=== PATIENT | male | born 1985 | race Two or more races ===

== ENCOUNTER 2016-09-12 01:07 | Emergency (ER) | payer MEDICAID ==
[~2016-09-12] VITALS: Ht 165.1 cm; Wt 66.7 kg
[2016-09-12] MEDS ORDERED: NKM (01:26)
--- NOTE | 2016-09-12 01:37 | Emergency Room Report ---
History of Present Illness General Chief Complaint: Chest Pain Source: Patient Present Illness HPI Patient presents with complaints of midsternal chest pain off-and-on for the past 2 days He also feels the pain in the left upper shoulder Denies any vomiting denies any abdominal pain Patient reports that 2 months ago he was told at the clinic he had borderline glucose which was 109 Today he checked it which was 85 Denies any dysuria frequency Denies any flank pain denies any shortness of breath or pleurisy Allergies: Coded Allergies: No Known Allergies (Unverified , 09/12/16) Patient History Past Medical History: see triage record Pertinent Family History: none Reviewed Nursing Documentation: PMH: Agreed, PSxH: Agreed Nursing Documentation-PMH Past Medical History: No Stated History Review of Systems All Other Systems: negative except mentioned in HPI Physical Exam Vital Signs Date Time Temp Pulse Resp B/P Pulse Ox O2 Delivery O2 Flow Rate FiO2 09/12/16 01:20 97.9 70 16 118/77 99 Room Air Sp02 EP Interpretation: reviewed, normal General Appearance: well appearing, no apparent distress Head: normocephalic, atraumatic Eyes: bilateral eye EOMI, bilateral eye PERRL ENT: hearing grossly normal, normal pharynx, TMs + canals normal, uvula midline Neck: full range of motion, supple, no meningismus, no bony tend Respiratory: lungs clear, normal breath sounds, no rhonchi, no respiratory distress, no retraction, no accessory muscle use Cardiovascular #1: normal peripheral pulses, regular rate, rhythm, no edema, no gallop, no JVD, no murmur Gastrointestinal: normal bowel sounds, non tender, soft, no mass, no organomegaly, non-distended, no guarding, no hernia, no pulsatile mass, no rebound Genitourinary: no CVA tenderness Musculoskeletal: normal inspection Neurologic: oriented x3, responsive, 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, motor strength/ tone normal, sensory intact Psychiatric: mood/affect normal Skin: normal color, no rash, warm/dry, palpation normal Lymphatic: normal inspection, no adenopathy Medical Decision Making Diagnostic Impression: Primary Impression: Chest pain ER Course Patient is a fairly complex patient with multiple differential to consideration including but not limited to cardiac cardiopulmonary and vascular emergencies Patient's EKG is normal patient remained hemodynamically stable My suspicion for cardiac presentation is low Patient does not have any pulmonary complaints as far as shortness of breath or pleurisy At this time is stable for close outpatient followup EKG Diagnostic Results Rate: normal Rhythm: NSR ST Segments: no acute changes Rhythm Strip Diag. Results EP Interpretation: yes Rate: 66 Rhythm: NSR, no PVC's, no ectopy Last Vital Signs Date Time Temp Pulse Resp B/P Pulse Ox O2 Delivery O2 Flow Rate FiO2 09/12/16 01:20 97.9 70 16 118/77 99 Room Air Status: improved Disposition: HOME, SELF-CARE Condition: Improved Scripts Famotidine (PEPCID) 40 Mg Tablet 40 MG PO DAILY, #14 TAB 0 Refills Prov: ALBAN MARS D.O. 09/12/16 Referrals: NOT CHOSEN IPA/MD,REFERRING (PCP) Additional Instructions: Patient is provided with the discharge instructions notified to follow up with primary doctor in the next 2-3 days otherwise return to the er with any worsening symptoms. Please note that this report is being documented using [employer] technology. This can lead to erroneous entry secondary to incorrect interpretation by the dictating instrument. ALBAN MARS D.O. September 12, 2016 01:37
[2016-09-12] MEDS ORDERED: PEPCID40 MG PO (01:38)
[2016-09-12 01:40] VITALS: BP 125/78
[2016-09-12 01:43] VITALS: BP 125/78
--- NOTE | 2016-09-13 19:49 | Cardiology Report ---
APPROVED REPORT EKG Measurement Heart [id number] [place] [id number] Normal sinus rhythm with sinus arrhythmia Normal ECG
== END 2016-09-12 01:45 | disposition home or self-care (01) ==
LOC: EMR 01:18
DX: R07.89 Other chest pain (principal); M25.512 Pain in left shoulder
CPT/HCPCS: 93005; 99283

== ENCOUNTER 2017-01-10 04:33 | Emergency (ER) | payer MEDICAID ==
[~2017-01-10] VITALS: Ht 165.1 cm; Wt 68.0 kg
[~2017-01-10 04:33] MED LIST: NKM; PEPCID40 MG PO
--- NOTE | 2017-01-10 04:49 | Emergency Room Report ---
History of Present Illness General Chief Complaint: Foreign Body Source: Patient Present Illness HPI Is a 32-year-old male with no past history. He presents with a foreign body in his right ear. He was sleeping when the bug brought to his ear. This occurred about an hour ago. Very painful. No other complaint. Never happened before. Allergies: Coded Allergies: No Known Allergies (Unverified , 09/12/16) Patient History Past Medical History: see triage record, old chart reviewed Past Surgical History: none Pertinent Family History: none Social History: Denies: smoking Immunizations: other Reviewed Nursing Documentation: PMH: Agreed, PSxH: Agreed Nursing Documentation-PMH Past Medical History: No Stated History Review of Systems Eye: Denies: eye pain, blurred vision ENT: Denies: ear pain, nose congestion, throat swelling Respiratory: Denies: cough, shortness of breath Cardiovascular: Denies: chest pain, palpitations Gastrointestinal: Denies: abdominal pain, diarrhea, nausea, vomiting Musculoskeletal: Denies: back pain, joint pain Skin: Denies: rash Neurological: Denies: headache, numbness Endocrine: Denies: increased thirst, increased urine Hematologic/Lymphatic: Denies: easy bruising All Other Systems: negative except mentioned in HPI Physical Exam Vital Signs Date Time Temp Pulse Resp B/P (MAP) Pulse Ox O2 Delivery O2 Flow Rate FiO2 01/10/17 04:34 98.1 76 18 123/81 98 Room Air vitals normal Sp02 EP Interpretation: reviewed, normal General Appearance: well appearing, no apparent distress, alert Head: normocephalic, atraumatic Eyes: bilateral eye PERRL, bilateral eye EOMI ENT: hearing grossly normal, normal pharynx, other - Ear canal: There is an insect it looked like her cockroach in his right ear canal. Is still moving. Neck: full range of motion, supple, no meningismus Respiratory: chest non-tender, lungs clear, normal breath sounds Cardiovascular #1: regular rate, rhythm, no murmur Gastrointestinal: normal bowel sounds, non tender, no mass, no organomegaly, no bruit, non-distended Musculoskeletal: back normal, gait/station normal, normal range of motion Psychiatric: mood/affect normal Skin: warm/dry Procedures Additional Procedure Procedure Narrative Procedure: Foreign body removal Indication: Foreign body in right ear canal Description: I irrigated the right ear canal with water using an 18-gauge angiocatheter. This killed the bug. Using an alligator forcep was removed in whole. Patient tolerated procedure without a problem. On recheck is no perforation of the eardrum. There is some erythema along the canal medially. Medical Decision Making Diagnostic Impression: Primary Impression: Foreign body in right auditory canal Qualified Codes: S00.451A - Superficial foreign body of right ear, initial encounter ER Course Patient with a foreign body in the right ear. No perforation. We'll discharge him. Last Vital Signs Date Time Temp Pulse Resp B/P (MAP) Pulse Ox O2 Delivery O2 Flow Rate FiO2 01/10/17 04:34 98.1 76 18 123/81 98 Room Air Status: improved Disposition: HOME, SELF-CARE Condition: Stable Patient Instructions: Ear Foreign Body Additional Instructions: Followup with your Dr. in 7 days return if symptom worsen. CIRILO EID M.D. Jan 10, 2017 04:49
[2017-01-10 05:10] VITALS: BP 131/82
== END 2017-01-10 05:10 | disposition home or self-care (01) ==
LOC: EMR 04:40
DX: S00.451A Superficial foreign body of right ear, initial encounter (principal); X58.XXXA Exposure to other specified factors, initial encounter; Y93.9 Activity, unspecified; Y92.9 Unspecified place or not applicable
CPT/HCPCS: 69210; 99282

== ENCOUNTER 2017-12-31 20:58 | Emergency (ER) | payer MEDICAID ==
[~2017-12-31] VITALS: Ht 154.9 cm; Wt 66.2 kg
--- NOTE | 2017-12-31 21:42 | Emergency Room Report ---
History of Present Illness General Chief Complaint: General Complaint Source: Patient Present Illness [facility] Mr. Adler is a healthy 33-year-old male presents with left sided chest palpitations and tingling in arms and legs since this morning. Denies any shortness of breath. Denies any fever. Denies discrete pain Allergies: Coded Allergies: No Known Allergies (Unverified , 09/12/16) Nursing Documentation-[facility] Past Medical History: No Stated History Review of Systems Constitutional: Denies: fever, malaise Cardiovascular: Reports: chest pain Gastrointestinal: Denies: abdominal pain All Other Systems: negative except mentioned in HPI Physical Exam Vital Signs Date Time Temp Pulse Resp B/P (MAP) Pulse Ox O2 Delivery O2 Flow Rate FiO2 12/31/17 21:30 97.2 55 16 120/79 98 Room Air 97.2 Sp02 EP Interpretation: reviewed, normal General Appearance: no apparent distress, alert, GCS 15, non-toxic Head: normocephalic, atraumatic Eyes: bilateral eye normal inspection ENT: hearing grossly normal, normal pharynx, no angioedema, normal voice Neck: full range of motion, supple/symm/no masses Respiratory: chest non-tender, lungs clear, normal breath sounds, no rhonchi, no respiratory distress, no retraction, no accessory muscle use, speaking full sentences Cardiovascular #1: regular rate, rhythm, no edema, no gallop, no JVD, no murmur , no rub Cardiovascular #2: 2+ carotid (R), 2+ carotid (L), 2+ radial (R), 2+ radial (L) , 2+ dorsalis pedis (R), 2+ dorsalis pedis (L) Gastrointestinal: normal bowel sounds, non tender, soft, non-distended, no guarding, no rebound Rectal: deferred Musculoskeletal: back normal, gait/station normal, normal range of motion, non- tender Neurologic: alert, oriented x3, responsive, motor strength/tone normal, sensory intact, speech normal Psychiatric: judgement/insight normal, memory normal, mood/affect normal, no suicidal/homicidal ideation Skin: normal color, no rash, warm/dry, well hydrated Medical Decision Making ER Course Mr. Adler presents with chest pain and paresthesias. I do not suspect PE, ACS , PTX. DDX: GERD, PVCs rx: famotidine Labs Test 12/31/17 22:10 White Blood Count 7.2 K/UL (4.8-10.8) Red Blood Count 5.09 M/UL (4.70-6.10) Hemoglobin 15.0 G/DL (14.2-18.0) Hematocrit 44.0 % (42.0-52.0) Mean Corpuscular Volume 87 FL (80-99) Mean Corpuscular Hemoglobin 29.4 PG (27.0-31.0) Mean Corpuscular Hemoglobin Concent 34.0 G/DL (32.0-36.0) Red Cell Distribution Width 12.1 % (11.6-14.8) Platelet Count 245 K/UL (150-450) Mean Platelet Volume 7.0 FL (6.5-10.1) Neutrophils (%) (Auto) 48.1 % (45.0-75.0) Lymphocytes (%) (Auto) 39.0 % (20.0-45.0) Monocytes (%) (Auto) 9.5 % (1.0-10.0) Eosinophils (%) (Auto) 2.1 % (0.0-3.0) Basophils (%) (Auto) 1.3 % (0.0-2.0) Sodium Level 139 MMOL/L (136-145) Potassium Level 3.7 MMOL/L (3.5-5.1) Chloride Level 105 MMOL/L (98-107) Carbon Dioxide Level 28 MMOL/L (21-32) Anion Gap 6 mmol/L (5-15) Blood Urea Nitrogen 13 mg/dL (7-18) Creatinine 0.7 MG/DL (0.55-1.30) Estimat Glomerular Filtration Rate > 60 mL/min (>60) Glucose Level 106 MG/DL (74-106) Calcium Level 9.3 MG/DL (8.5-10.1) Lab Results Impression cbc bmp WNL EKG Diagnostic Results Rate: normal Rhythm: NSR ST Segments: no acute changes Other Impression normal sinus rhythm normal rate normal axis normal intervals no ST elevation no ST-T signs of ischemia rate 60 beats a minute Last Vital Signs Date Time Temp Pulse Resp B/P (MAP) Pulse Ox O2 Delivery O2 Flow Rate FiO2 12/31/17 21:30 97.2 55 16 120/79 98 Room Air 97.2 Referrals: NOT CHOSEN IPA/MD,REFERRING (PCP) Lyudmila Lamar MD Dec 31, 2017 21:42
[2017-12-31] MEDS ORDERED: GI Cocktail 50ml ORAL ONE (21:45)
[2017-12-31] MEDS ORDERED: Acetaminophen 500mg (ES) tab ORAL ONE (21:45)
[2017-12-31] MEDS ORDERED: Dicyclomine HCl 10mg/5ml oral soln ONE (22:15)
[2017-12-31] MEDS ORDERED: Lidocaine 2% Visc 15ml soln ONE (22:15)
[2017-12-31 22:25] LABS: BASOPHILS % (AUTO) 1.3 % (0.0-2.0); EOSINOPHILS % (AUTO) 2.1 % (0.0-3.0); MEAN CORPUSCULAR VOLUME 87 FL (80-99); MONOCYTES % (AUTO) 9.5 % (1.0-10.0); NEUTROPHILS % (AUTO) 48.1 % (45.0-75.0); PLATELET COUNT 245 K/UL (150-450); RED BLOOD COUNT 5.09 M/UL (4.70-6.10); RED CELL DISTRIBUTION WIDTH 12.1 % (11.6-14.8); WHITE BLOOD COUNT 7.2 K/UL (4.8-10.8)
[2017-12-31 22:31] LABS: ANION GAP 6 mmol/L (5-15); BLOOD UREA NITROGEN 13 mg/dL (7-18); CALCIUM 9.3 MG/DL (8.5-10.1); CARBON DIOXIDE 28 MMOL/L (21-32); CHLORIDE 105 MMOL/L (98-107); CREATININE 0.7 MG/DL (0.55-1.30); POTASSIUM 3.7 MMOL/L (3.5-5.1); SODIUM 139 MMOL/L (136-145)
[2017-12-31 22:40] VITALS: BP 120/79
[2017-12-31] MEDS ORDERED: FAMOTIDINE20 MG ORAL (22:46)
[2017-12-31 23:00] VITALS: BP 120/79
--- NOTE | 2018-01-02 21:26 | Cardiology Report ---
APPROVED REPORT EKG Measurement Heart [id number] [place] 158P56 [id number] Sinus bradycardia Otherwise normal ECG
== END 2017-12-31 23:00 | disposition home or self-care (01) ==
LOC: EDBD → EMR 21:34
DX: R07.9 Chest pain, unspecified (principal); R00.2 Palpitations; R20.2 Paresthesia of skin
CPT/HCPCS: 36415; 80048; 85025; 93005; 99284

== ENCOUNTER 2018-01-06 21:42 | Emergency (ER) | payer MEDICAID ==
[~2018-01-06] VITALS: Ht 154.9 cm; Wt 66.2 kg
[~2018-01-06 21:42] MED LIST changes: +FAMOTIDINE20 MG ORAL
[2018-01-06 22:10] VITALS: BP 113/65
--- NOTE | 2018-01-06 22:24 | Emergency Room Report ---
History of Present Illness General Chief Complaint: Chest Pain Source: Patient Present Illness HPI This is a 33-year-old male with no past medical history. He presents with chief point of chest pain. He said he felt some water sensation in his chest. This occurred his morning. He said he got better when he exercises. No radiation but no nausea no vomiting. He's been here several time for the same thing. No diaphoresis. Allergies: Coded Allergies: No Known Allergies (Unverified , 09/12/16) Patient History Past Medical History: see triage record, old chart reviewed Past Surgical History: none Pertinent Family History: none Social History: Denies: smoking Immunizations: other Reviewed Nursing Documentation: PMH: Agreed; PSxH: Agreed Nursing Documentation-PMH Past Medical History: No Stated History Review of Systems Eye: Denies: eye pain, blurred vision ENT: Denies: ear pain, nose congestion, throat swelling Respiratory: Denies: cough, shortness of breath Cardiovascular: Reports: chest pain; Denies: palpitations Gastrointestinal: Denies: abdominal pain, diarrhea, nausea, vomiting Musculoskeletal: Denies: back pain, joint pain Skin: Denies: rash Neurological: Denies: headache, numbness Endocrine: Denies: increased thirst, increased urine Hematologic/Lymphatic: Denies: easy bruising All Other Systems: negative except mentioned in HPI Physical Exam Vital Signs Date Time Temp Pulse Resp B/P (MAP) Pulse Ox O2 Delivery O2 Flow Rate FiO2 01/06/18 21:47 98.2 62 17 122/71 98 Room Air 98.2 vitals normal Sp02 EP Interpretation: reviewed, normal General Appearance: well appearing, no apparent distress, alert Head: normocephalic, atraumatic Eyes: bilateral eye PERRL, bilateral eye EOMI ENT: hearing grossly normal, normal pharynx Neck: full range of motion, supple, no meningismus Respiratory: chest non-tender, lungs clear, normal breath sounds Cardiovascular #1: regular rate, rhythm, no murmur Gastrointestinal: normal bowel sounds, non tender, no mass, no organomegaly, no bruit, non-distended Musculoskeletal: back normal, gait/station normal, normal range of motion Psychiatric: mood/affect normal Skin: warm/dry Medical Decision Making Diagnostic Impression: Primary Impression: Chest pain Qualified Codes: R07.9 - Chest pain, unspecified ER Course Patient with atypical chest pain that get better with exercise. No evidence of any ACS, PE, dissection to name a few. We'll discharge home. Last Vital Signs Date Time Temp Pulse Resp B/P (MAP) Pulse Ox O2 Delivery O2 Flow Rate FiO2 01/06/18 22:10 98.2 56 17 113/65 98 Room Air 98.2 Status: improved Disposition: HOME, SELF-CARE Condition: Stable Patient Instructions: Nonspecific Chest Pain Additional Instructions: Follow-up with your doctor in 7 days. Return if worse. CIRILO EID M.D. Jan 06, 2018 22:24
[2018-01-06 22:29] VITALS: BP 113/63
[2018-01-06 22:30] VITALS: BP 113/63
--- NOTE | 2018-01-07 15:40 | Cardiology Report ---
APPROVED REPORT EKG Measurement Heart [id number] [place] 158P55 [id number] Sinus bradycardia Otherwise normal ECG
== END 2018-01-06 22:30 | disposition home or self-care (01) ==
LOC: EMR 22:11
DX: R07.9 Chest pain, unspecified (principal)
CPT/HCPCS: 93005; 99283

== ENCOUNTER 2018-03-01 17:12 | Emergency (ER) | payer MEDICAID ==
[~2018-03-01] VITALS: Ht 154.9 cm; Wt 65.8 kg
[2018-03-01 17:34] VITALS: BP 122/75
[2018-03-01] MEDS ORDERED: Tetanus/Diptheria/Pertussis Vaccine 0.5ml Syr IM ONE (17:45)
[2018-03-01] MEDS ORDERED: Cephalexin 500mg cap ORAL ONE (17:45)
--- NOTE | 2018-03-01 17:53 | Emergency Room Report ---
History of Present Illness General Chief Complaint: Skin Rash/Abscess Source: Patient Present Illness HPI 33-year-old male presents to the emergency department complaining of progression of his itchy rash that originally started on his right hand. Patient states that he now has itchy lesions up the right forearm, with associated 3/10 in severity pain, swelling and crusting to the initial lesions on the fingers. Patient is not sure when his last tetanus vaccination was. Pt. denies fevers, chills or swollen tender lymph nodes. He reports a small group of similar lesions to the back of his right ear. Denies lesions on the face or ear pain. Denies new medications or body washes or creams. Denies swelling of the lips, tongue , throat or airway. Denies wheezing, or shortness of breath. Denies recent travel, recent illness or ill contacts. denies blisters, oral lesions, or sloughing of the skin Allergies: Coded Allergies: No Known Allergies (Unverified , 09/12/16) Patient History Past Medical History: see triage record Past Surgical History: none Pertinent Family History: none Reviewed Nursing Documentation: PMH: Agreed; PSxH: Agreed Nursing Documentation-PMH Past Medical History: No Stated History Physical Exam Vital Signs Date Time Temp Pulse Resp B/P (MAP) Pulse Ox O2 Delivery O2 Flow Rate FiO2 03/01/18 17:20 98.1 54 17 129/61 98 Room Air Sp02 EP Interpretation: reviewed, normal General Appearance: no apparent distress, alert, GCS 15, non-toxic, moderate distress Head: normocephalic, atraumatic Eyes: bilateral eye normal inspection, bilateral eye PERRL ENT: hearing grossly normal, no angioedema, normal voice, other - no rash lesions on the face /nose/ scalp Neck: full range of motion Respiratory: chest non-tender, lungs clear, normal breath sounds, speaking full sentences Cardiovascular #1: regular rate, rhythm Musculoskeletal: back normal, gait/station normal, normal range of motion Neurologic: alert, oriented x3, responsive, motor strength/tone normal, sensory intact, speech normal, grossly normal Psychiatric: judgement/insight normal Skin: normal color, warm/dry, well hydrated, rash - multiple papules with excoriations noted to the dorsum of the right hand, the volar wrist and in a linear migration up the right forearm, small group of similar lesions behind the right ear. There is evidence of secondary infection to initial lesions on the dorsum of the right fingers and interdigitally. No blisters or vesicles noted. Lymphatic: no adenopathy Medical Decision Making PA Attestation Dr. Lamar is my supervising Physician whom patient management has been discussed with. Diagnostic Impression: Primary Impression: Rash and other nonspecific skin eruption ER Course 33-year-old male presents to the emergency department complaining of progression of his itchy rash that originally started on his right hand. Patient states that he now has itchy lesions up the right forearm, with associated 3/10 in severity pain, swelling and crusting to the initial lesions on the fingers. Patient is not sure when his last tetanus vaccination was. Pt. denies fevers, chills or swollen tender lymph nodes. He reports a small group of similar lesions to the back of his right ear. Denies lesions on the face or ear pain. Denies new medications or body washes or creams. Denies swelling of the lips, tongue , throat or airway. Denies wheezing, or shortness of breath. Denies recent travel, recent illness or ill contacts. denies blisters, oral lesions, or sloughing of the skin. Ddx considered but are not limited to cellulitis, scabies, insect bites, tic bites, spider bites, contact dermatitis, Drug reaction, allergic reaction, fungal infection, lice. Vital signs: are WNL, pt. is afebrile H&PE are most consistent with - suspected scabies due to location of initial symptoms and symptom progression/migration. multiple papules with excoriations noted to the dorsum of the right hand, the volar wrist and in a linear migration up the right forearm, small group of similar lesions behind the right ear. There is evidence of secondary infection to initial lesions on the dorsum of the right fingers and interdigitally. No blisters or vesicles noted. ORDERS: none required at this time, the diagnosis is clinical ED INTERVENTIONS: -Tdap IM -Prednisone PO 60mg. -Keflex 500mg PO DISCHARGE: At this time pt. is stable for d/c to home. Will provide printed patient care instructions, and any necessary prescriptions. Care plan and follow up instructions have been discussed with the patient prior to discharge. Last Vital Signs Date Time Temp Pulse Resp B/P (MAP) Pulse Ox O2 Delivery O2 Flow Rate FiO2 03/01/18 17:34 98.7 86 16 122/75 100 Room Air Disposition: HOME, SELF-CARE Condition: Stable Scripts Prednisone* (PREDNISONE*) 20 Mg Tablet 40 MG ORAL DAILY for 3 Days, #6 TAB Prov: Gail Russell 03/01/18 Mupirocin* (MUPIROCIN*) 22 Gm Oint...g. 1 APPLIC TOPIC THREE TIMES A DAY, #22 GM Prov: Gail Russell 03/01/18 Cephalexin* (KEFLEX*) 500 Mg Capsule 500 MG ORAL EVERY 12 HOURS for 7 Days, #14 CAP 0 Refills Prov: Gail Russell 03/01/18 Diphenhydramine Hcl (BENADRYL ALLERGY) 25 Mg Tablet 25 MG PO Q6HR, #20 TAB Prov: Gail Russell 03/01/18 Permethrin* (ELIMITE*) 60 Gm Cream..g. 1 APPLIC TOPIC ONCE, #60 GM 0 Refills Apply cream from head to toe; leave on for 8-14 hours before washing off with water; may reapply in 1 week if live mites appear. Prov: Gail Russell 03/01/18 Departure Forms: Return to Work Return to Work Date: Mar 05, 2018 Work Restrictions: None Return to Full Activity: Mar 05, 2018 Patient Instructions: Rash Additional Instructions: Take medications as directed. Follow up with a Primary Care Provider in 3-5 days, even if your symptoms have resolved. --Please review list of primary care clinics, if you do not already have a primary care provider Return sooner to ED if new symptoms occur, or current symptoms become worse. Do not drink alcohol, drive, or operate heavy machinery while taking Benadryl as this may cause drowsiness. - Please note that this Emergency Department Report was dictated using [employer] technology software, occasionally this can lead to erroneous entry secondary to interpretation by the dictation equipment. Gail Russell Mar 01, 2018 17:53
[2018-03-01] MEDS ORDERED: CEPHALEXIN500 MG ORAL (17:55)
[2018-03-01] MEDS ORDERED: BENADRYL ALLERG25 M1 PO (17:55)
[2018-03-01] MEDS ORDERED: PERMETHRIN60 GM TOPIC (17:55)
[2018-03-01] MEDS ORDERED: MUPIROCIN22 GM TOPIC (17:55)
[2018-03-01] MEDS ORDERED: PREDNISONE20 MG ORAL (17:56)
[2018-03-01 18:02] VITALS: BP 128/70
== END 2018-03-01 18:45 | disposition home or self-care (01) ==
LOC: EMR 18:37
DX: R21 Rash and other nonspecific skin eruption (principal); Z23 Encounter for immunization
CPT/HCPCS: 90471; 90715; 99283; J7512

== ENCOUNTER 2018-08-19 18:19 | Emergency (ER) | payer MEDICAID ==
[~2018-08-19] VITALS: Ht 165.1 cm; Wt 67.1 kg
[~2018-08-19 18:19] MED LIST changes: +BENADRYL ALLERG25 M1 PO; +CEPHALEXIN500 MG ORAL; +MUPIROCIN22 GM TOPIC; +PERMETHRIN60 GM TOPIC; +PREDNISONE20 MG ORAL
[2018-08-19] MEDS ORDERED: NKM (18:30)
--- NOTE | 2018-08-19 18:33 | NUR ---
ED Nurse Note: Pt came into the ER w/ complaints of chest pain x 2 days radiating to the left arm. Pt is also complaining of left arm numbness. Pt is rating the pain a 6/10. Pt is A + O x4. Ambulatory. Skin warm to touch.
[2018-08-19 18:34] VITALS: BP 129/70
--- NOTE | 2018-08-19 18:39 | Emergency Room Report ---
History of Present Illness General Chief Complaint: Generalized Weakness Source: Patient Present Illness HPI Patient is a 34-year-old male brought in by self after increased left-sided arm numbness. Patient reported having increased generalized weakness and dizziness. He stated he had been drinking alcohol last night and had approximately 6-7 drinks. He denies any vomiting. He reports having some spinning sensation. He reports having some numbness to his left arm. He states that he did not recall falling asleep on his arm. He reports having some change in sensation since last night. Patient stated that he was told by family members to come to the hospital to be examined. Allergies: Coded Allergies: No Known Allergies (Unverified , 09/12/16) Patient History Past Medical History: see triage record Reviewed Nursing Documentation: PMH: Agreed; PSxH: Agreed Nursing Documentation-PMH Past Medical History: No Stated History Review of Systems All Other Systems: negative except mentioned in HPI Physical Exam Vital Signs Date Time Temp Pulse Resp B/P (MAP) Pulse Ox O2 Delivery O2 Flow Rate FiO2 08/19/18 18:27 97.5 95 18 133/84 98 Room Air Sp02 EP Interpretation: reviewed, normal General Appearance: normal inspection, well appearing, no apparent distress, alert, GCS 15 Head: atraumatic ENT: normal ENT inspection, hearing grossly normal, normal voice Neck: normal inspection, full range of motion, supple, no bony tend Respiratory: normal inspection, lungs clear, normal breath sounds, no respiratory distress, no retraction, no wheezing Cardiovascular #1: regular rate, rhythm, no edema Gastrointestinal: normal inspection, normal bowel sounds, non tender, soft, no guarding, no hernia Genitourinary: no CVA tenderness Musculoskeletal: normal inspection, back normal, normal range of motion Neurologic: normal inspection, alert, oriented x3, responsive, 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 Differential diagnosis included was not limited to anemia, urinary tract infection, electrolyte abnormality, hypothyroidism, myocardial infarction, myasthenia gravis, dehydration, among others. Last Vital Signs Date Time Temp Pulse Resp B/P (MAP) Pulse Ox O2 Delivery O2 Flow Rate FiO2 08/19/18 18:27 97.5 95 18 133/84 98 Room Air Adrian Nj MD Aug 19, 2018 18:39
[2018-08-19 19:01] LABS: BASOPHILS % (AUTO) 1.1 % (0.0-2.0); EOSINOPHILS % (AUTO) 0.2 % (0.0-3.0); HEMATOCRIT 44.8 % (42.0-52.0); HEMOGLOBIN 15.1 G/DL (14.2-18.0); LYMPHOCYTES % (AUTO) 30.7 % (20.0-45.0); MEAN CORPUSCULAR VOLUME 86 FL (80-99); MONOCYTES % (AUTO) 7.8 % (1.0-10.0); NEUTROPHILS % (AUTO) 60.1 % (45.0-75.0); PLATELET COUNT 224 K/UL (150-450); RED BLOOD COUNT 5.18 M/UL (4.70-6.10); RED CELL DISTRIBUTION WIDTH 12.3 % (11.6-14.8)
--- NOTE | 2018-08-19 19:02 | NUR ---
HAND-OFF: Report given to LARISSA Santoyo.
--- NOTE | 2018-08-19 19:07 | NUR ---
ED Nurse Note: pt left for CT head
[2018-08-19 19:13] LABS: ANION GAP 9 mmol/L (5-15); BLOOD UREA NITROGEN 15 mg/dL (7-18); CALCIUM 9.3 MG/DL (8.5-10.1); CARBON DIOXIDE 28 MMOL/L (21-32); CHLORIDE 103 MMOL/L (98-107); CREATININE 0.7 MG/DL (0.55-1.30); POTASSIUM 3.7 MMOL/L (3.5-5.1); SODIUM 140 MMOL/L (136-145)
--- NOTE | 2018-08-19 19:15 | NUR ---
ED Nurse Note: pt returned from CT
[2018-08-19 19:16] LABS: ALANINE AMINOTRANSFERASE 30 U/L (12-78); ALBUMIN/GLOBULIN RATIO 1.1 (1.0-2.7); ALKALINE PHOSPHATASE 137 U/L (46-116); ASPARTATE AMINO TRANSFERASE 23 U/L (15-37); BILIRUBIN,TOTAL 0.3 MG/DL (0.2-1.0)
[2018-08-19] MEDS ORDERED: MECLIZINE HCL25 MG ORAL (20:01)
[2018-08-19 20:09] VITALS: BP 122/68
--- NOTE | 2018-08-19 20:11 | NUR ---
ER DISCHARGE NOTE: Patient is cleared to be discharged per ERMD, pt is aox4, on room air, with stable vital signs. pt was given dc and prescription instructions, pt was able to verbalize understanding, pt id band and iv site removed without complications. pt is able to ambulate with steady gait. pt took all belongings.
--- NOTE | 2018-08-20 11:07 | Diagnostic Imaging Report ---
Indications: Dizziness and vertigo Technique: Spiral acquisitions obtained through the brain. Angled axial and coronal 5 x 5 mm slices were reconstructed. Total dose length product 1326.62 mGycm. CTDI vol(s) 70.38 mGy. Dose reduction achieved using automated exposure control Comparison: None. Findings: No acute intracranial hemorrhage or edema, mass effect, nor midline shift. Normal kwok-white differentiation. Intact calvarium. Visualized orbits and sinuses are unremarkable. Impression: Negative The CT scanner at [facility] is accredited by the [employer] and the scans are performed using protocols designed to limit radiation exposure to as low as reasonably achievable to attain images of sufficient resolution adequate for diagnostic evaluation.
== END 2018-08-19 20:11 | disposition home or self-care (01) ==
LOC: EMR 19:06
DX: R53.1 Weakness (principal); R20.0 Anesthesia of skin; R42 Dizziness and giddiness
CPT/HCPCS: 36415; 70450; 80053; 84484; 85025; 93005; 96360; 99284

== ENCOUNTER 2019-12-18 19:58 | Emergency (ER) | payer MEDICAID ==
[~2019-12-18] VITALS: Ht 152.4 cm; Wt 73.5 kg
[~2019-12-18 19:58] MED LIST changes: +MECLIZINE HCL25 MG ORAL
[2019-12-18 20:07] VITALS: BP 138/77
--- NOTE | 2019-12-18 20:16 | Emergency Room Report ---
History of Present Illness General Chief Complaint: Skin Rash/Abscess Source: Patient Present Illness HPI 35-year-old male with no signal past medical history here complaining of bilateral arm swelling and pruritus x3 days. 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 Appears to have contact dermatitis that is not cellulitic. Complains of minimal burning sensation. Has range of motion. Patient denies any tingling numbness. Patient denies any fever and chills, chest pain shortness of breath. Has range of motion. Is neurovascularly intact. Has not taken medication for symptom relief. Denies coming contact with any new allergens, denies anaphylaxis and angioedema. 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 Patient History Past Medical History: see triage record Past Surgical History: none Pertinent Family History: none Immunizations: UTD Reviewed Nursing Documentation: PMH: Agreed; PSxH: Agreed Nursing Documentation-PMH Past Medical History: No Stated History Review of Systems All Other Systems: negative except mentioned in HPI Physical Exam Vital Signs Date Time Temp Pulse Resp B/P (MAP) Pulse Ox O2 Delivery O2 Flow Rate FiO2 12/18/19 20:02 98.6 78 18 138/77 (97) 99 Room Air Sp02 EP Interpretation: reviewed, normal General Appearance: no apparent distress, alert, GCS 15, non-toxic Head: normocephalic, atraumatic Eyes: bilateral eye normal inspection, bilateral eye PERRL ENT: hearing grossly normal, normal pharynx, no angioedema, normal voice Neck: full range of motion, supple/symm/no masses Respiratory: chest non-tender, lungs clear, normal breath sounds, no rhonchi, speaking full sentences Cardiovascular #1: regular rate, rhythm, no edema Cardiovascular #2: 2+ radial (R), 2+ radial (L) Gastrointestinal: normal bowel sounds, non tender, soft, non-distended, no guarding, no rebound Rectal: deferred Genitourinary: no CVA tenderness Musculoskeletal: back normal Neurologic: alert, motor strength/tone normal, oriented x3, sensory intact, responsive, speech normal Psychiatric: judgement/insight normal, memory normal, mood/affect normal, no suicidal/homicidal ideation Skin: other - cellulitis and contact dermatitis bilateral lower arms and hands Lymphatic: no adenopathy Medical Decision Making PA Attestation All my diagnosis and treatment plans were reviewed ad discussed with my supervising physician Dr. Quintanilla Diagnostic Impression: Primary Impression: Contact dermatitis Additional Impression: Cellulitis ER Course 35-year-old male with no signal past medical history here complaining of bilateral arm swelling and pruritus x3 days. 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 Appears to have contact dermatitis that is not cellulitic. Complains of minimal burning sensation. Has range of motion. Patient denies any tingling numbness. Patient denies any fever and chills, chest pain shortness of breath. Has range of motion. Is neurovascularly intact. Has not taken medication for symptom relief. Denies coming contact with any new allergens, denies anaphylaxis and angioedema. Ddx considered but are not limited to : Cellulitis, contact dermatitis, superficial infection, abscess Vital signs: are WNL, pt. is afebrile H&PE are most consistent with: Cellulitis, contact dermatitis ORDERS: Prednisone, Benadryl, Augmentin, and a cortisone cream ED INTERVENTIONS: Prednisone p.o. DISCHARGE: At this time pt. is stable for d/c to home. Will provide printed patient care instructions, and any necessary prescriptions. Care plan and follow up instructions have been discussed with the patient prior to discharge. Patient to avoid wearing the plastic left lower quadrant ointment, due to sweating underneath the plastic breast patient advised to keep changing the clothes, take medication as directed, follow primary care provider, if worsening symptoms return to the emergency room Patient was evaluated in the context of the global COVID-19 pandemic, which necessitated consideration that the patient might be at risk for infection with the SARS-COV-2 virus that causes COVID-19. Institutional protocols and algorithms that pertain to the evaluation of patients at risk for COVID-19 are in a state of rapid change based on information relieved by multiple regulatory bodies including the CDC and the federal and state organizations. These policies and algorithms were followed during the patient's care in the ED. Last Vital Signs Date Time Temp Pulse Resp B/P (MAP) Pulse Ox O2 Delivery O2 Flow Rate FiO2 12/18/19 20:07 98.6 87 18 138/77 99 Room Air Disposition: HOME, SELF-CARE Condition: Stable Scripts Hydrocortisone/Aloe (Hydrocortisone/Aloe 1% Cream*) Y Cr 1 APPLIC TOPIC Q6H PRN for Itching, #30 GM Prov: Purnima Vincent 12/18/19 Amoxicillin/Potassium Clav 875-125* (AUGMENTIN 875-125 TABLET*) 1 Each Tablet 1 TAB ORAL TWICE A DAY for 7 Days, #14 TAB Prov: Purnima Vincent 12/18/19 Diphenhydramine HCl (Benadryl) 25 Mg Capsule 25 MG PO BID, #20 CAP Prov: Purnima Vincent 12/18/19 Prednisone* (PREDNISONE*) 20 Mg Tablet 40 MG ORAL DAILY for 5 Days, #10 TAB Prov: Purnima Vincent 12/18/19 Patient Instructions: Cellulitis, [id number], Contact Dermatitis, Easy-to- Read Additional Instructions: Take medication as directed, follow-up with your primary care provider, do not use plastic gloves, if worsening symptoms return to the emergency room. Avoid taking coffee and spicy food Purnima Vincent Dec 18, 2019 20:16
[2019-12-18] MEDS ORDERED: PREDNISONE20 MG ORAL (20:17)
[2019-12-18] MEDS ORDERED: HYDROCORTISONE-30 GM TOPIC (20:17)
[2019-12-18] MEDS ORDERED: BENADRYL25 M3 PO (20:17)
[2019-12-18] MEDS ORDERED: AUGMENTIN 875-1 EAC1 ORAL (20:17)
[2019-12-18 20:27] VITALS: BP 145/86
== END 2019-12-18 20:27 | disposition home or self-care (01) ==
LOC: EMR 20:24
DX: L25.8 Unspecified contact dermatitis due to other agents (principal); L03.114 Cellulitis of left upper limb; L03.113 Cellulitis of right upper limb
CPT/HCPCS: J7512; Z7502; 99282

== ENCOUNTER 2020-04-18 12:19 | Emergency (ER) | payer MEDICAID ==
[~2020-04-18] VITALS: Ht 152.4 cm; Wt 73.9 kg
[~2020-04-18 12:19] MED LIST changes: +AUGMENTIN 875-1 EAC1 ORAL; +BENADRYL25 M3 PO; +HYDROCORTISONE-30 GM TOPIC
[2020-04-18 12:22] VITALS: BP 143/79
--- NOTE | 2020-04-18 13:26 | Diagnostic Imaging Report ---
INDICATION: Pain COMPARISON: None FINDINGS: Single frontal view demonstrates a normal cardiomediastinal silhouette. The lungs are clear. No pleural effusions. The visualized osseous structures are within normal limits. IMPRESSION: No acute cardiopulmonary disease.
--- NOTE | 2020-04-18 13:29 | Emergency Room Report ---
History of Present Illness General Chief Complaint: Upper Extremity Injury Source: Patient Present Illness HPI 35-year-old male with no signal past medical history here complaining of few days of chest pressure and left arm pain. Denies any pain radiation. Reports that he lifts heavy objects. Also complains of acid reflux reports that he drinks a lot of caffeine and eats spicy food. Denies nausea vomiting diarrhea. Denies cough and congestion. Sitting comfortably with stable vital signs. Denies fever and chills. Denies any history of cardiac disease. Denies tobacco smoke, drug use, alcohol intake. Allergies: Coded Allergies: No Known Allergies (Unverified , 09/12/16) COVID-19 Screening Contact w/high risk pt: No Experienced COVID-19 symptoms?: No COVID-19 Testing performed SORTER UPHOLSTERY PARTS: Yes - 03/13/20 COVID-19 Screening: Negative COVID-19 COVID-19 Testing Source: clinic Patient History Past Medical History: see triage record Past Surgical History: none Pertinent Family History: none Immunizations: UTD Reviewed Nursing Documentation: PMH: Agreed; PSxH: Agreed Nursing Documentation-PMH Past Medical History: No Stated History Review of Systems All Other Systems: negative except mentioned in HPI Physical Exam Vital Signs Date Time Temp Pulse Resp B/P (MAP) Pulse Ox O2 Delivery O2 Flow Rate FiO2 04/18/20 12:22 98.2 98 19 143/79 (100) 98 Room Air Sp02 EP Interpretation: reviewed, normal General Appearance: no apparent distress, alert, GCS 15, non-toxic Head: normocephalic, atraumatic Eyes: bilateral eye normal inspection, bilateral eye PERRL ENT: hearing grossly normal, normal pharynx, no angioedema, normal voice Neck: full range of motion, supple/symm/no masses Respiratory: chest non-tender, lungs clear, normal breath sounds, speaking full sentences Cardiovascular #1: regular rate, rhythm, no edema Cardiovascular #2: 2+ carotid (R), 2+ carotid (L), 2+ radial (R), 2+ radial (L), 2+ dorsalis pedis (R), 2+ dorsalis pedis (L) Gastrointestinal: normal bowel sounds, non tender, soft, non-distended, no guarding, no rebound Rectal: deferred Musculoskeletal: back normal Neurologic: alert, motor strength/tone normal, oriented x3, sensory intact, responsive, speech normal Psychiatric: judgement/insight normal, memory normal, mood/affect normal, no suicidal/homicidal ideation Skin: no rash Lymphatic: no adenopathy Medical Decision Making PA Attestation All my diagnosis and treatment plans were reviewed ad discussed with my supervising physician Dr. Cadena Diagnostic Impression: Primary Impression: Muscle strain Additional Impression: Chest pain ER Course 35-year-old male with no signal past medical history here complaining of few days of chest pressure and left arm pain. Denies any pain radiation. Reports that he lifts heavy objects. Also complains of acid reflux reports that he drinks a lot of caffeine and eats spicy food. Denies nausea vomiting diarrhea. Denies cough and congestion. Sitting comfortably with stable vital signs. Denies fever and chills. Denies any history of cardiac disease. Denies tobacco smoke, drug use, alcohol intake. Ddx considered but are not limited to: [place], Angina, COPD, GERD, Vital signs: are WNL, pt. is afebrile H&PE are most consistent with nonspecific chest pain, GERD, muscle strain ORDERS: EKG, Chest XR, humerus x-ray, Pepcid, Motrin, Robaxin ED INTERVENTIONS: None required at this time. DISCHARGE: At this time pt. is stable for d/c to home. Will provide printed patient care instructions, and any necessary prescriptions. Care plan and follow up instructions have been discussed with the patient prior to discharge. Patient to avoid any spicy or acidic food, take medication as directed, follow primary doctor for referral to laundry presser if needed. Arm pain can be secondary to lifting heavy objects. At this time acute causes of chest pain been ruled out. Due to patient low risk factors further work-up and blood work not needed at this time however patient to follow primary doctor. If worsening symptoms return to the emergency room EKG Diagnostic Results Rate: normal Rhythm: NSR ST Segments: no acute changes Other Impression No acute ST changes ASA given to the pt in ED: No PA Scribe Text Troponin was not ordered due to patient being 35-year-old male, non-smoker, no cardiac history of hypertension history. Pain appears to be mostly muscle strain related. Also patient was advised to follow-up with laundry presser if needed. Chest X-Ray Diagnostic Results Chest X-Ray Diagnostic Results : Chest X-Ray Ordered: Yes # of Views/Limited/Complete: 1 View Indication: Chest Pain EP Interpretation: Yes PA Xray: Interpretation reviewed, by supervising MD, and agrees with findings. Interpretation: no consolidation, no effusion, no pneumothorax, no acute cardiopulmonary disease Impression: No acute disease Electronically Signed by: Purnima Henning PA-C Other X-Ray Diagnostic Results Other X-Ray Diagnostic Results : X-Ray ordered: Left humerus x-ray # of Views/Limited Vs Complete: 3 View Indication: Pain EP Interpretation: Yes PA Xray: Interpretation reviewed, by supervising MD, and agrees with findings. Interpretation: no dislocation, no soft tissue swelling, no fractures Impression: No acute disease Electronically Signed by: Purnima Henning PA-C Last Vital Signs Date Time Temp Pulse Resp B/P (MAP) Pulse Ox O2 Delivery O2 Flow Rate FiO2 04/18/20 12:22 98.2 98 19 143/79 98 Room Air Disposition: HOME, SELF-CARE Condition: Stable Scripts Famotidine* (Pepcid 20mg tablet*) 20 Mg Tablet 20 MG ORAL DAILY for Gerd, #30 TAB 0 Refills Prov: Purnima Vincent 04/18/20 Ibuprofen* (MOTRIN*) 600 Mg Tablet 600 MG ORAL Q8H PRN for FOR PAIN, #30 TAB 0 Refills Prov: Purnima Vincent 04/18/20 Methocarbamol* (ROBAXIN-500*) 500 Mg Tablet 500 MG ORAL TID PRN for For Pain, #15 TAB 0 Refills Prov: Purnima Vincent 04/18/20 Referrals: NOT CHOSEN IPA/,REFERRING (PCP) Patient Instructions: Chest Wall Pain, [id number], Muscle Strain, [id number] Additional Instructions: Take medication as directed, follow primary care provider, worsening symptoms return to the emergency room Purnima Vincent Apr 18, 2020 13:29
[2020-04-18] MEDS ORDERED: FAMOTIDINE20 MG ORAL (13:31)
[2020-04-18] MEDS ORDERED: IBUPROFEN600 M1 ORAL (13:31)
[2020-04-18] MEDS ORDERED: ROBAXIN-500MG ORAL (13:31)
--- NOTE | 2020-04-18 13:32 | Diagnostic Imaging Report ---
FILM LEFT HUMERUS LEFT HUMERUS, 4 views INDICATION: Left humerus pain COMPARISON: None FINDINGS: No fracture is seen. Bone mineralization is normal. Soft tissues within normal limits. IMPRESSION: No acute fracture identified.
[2020-04-18 13:40] VITALS: BP 132/78
== END 2020-04-18 13:40 | disposition home or self-care (01) ==
LOC: EMR 12:34
DX: T14.8XXA Other injury of unspecified body region, initial encounter (principal); R07.9 Chest pain, unspecified; X50.0XXA Overexertion from strenuous movement or load, initial encounter; Y93.89 Activity, other specified; Y92.9 Unspecified place or not applicable
CPT/HCPCS: 71045; 73060; 93005; Z7502; 99284